=== PATIENT | male | born 1965 | race Caucasian/White ===

== ENCOUNTER → 2017-06-17 | Outpatient (CLI) | payer OTHER | END | disposition home or self-care (01) | LOC: PMGWOUND 13:29 | DX: T25.321A Burn of third degree of right foot, initial encounter (principal); T31.0 Burns involving less than 10% of body surface; S91.301A Unspecified open wound, right foot, initial encounter; F41.9 Anxiety disorder, unspecified; I10 Essential (primary) hypertension; E11.42 Type 2 diabetes mellitus with diabetic polyneuropathy; K21.9 Gastro-esophageal reflux disease without esophagitis; E78.00 Pure hypercholesterolemia, unspecified; X08.8XXA Exposure to other specified smoke, fire and flames, initial encounter; Y93.G3 Activity, cooking and baking; Y92.9 Unspecified place or not applicable; Y99.8 Other external cause status; Z87.891 Personal history of nicotine dependence; Z79.01 Long term (current) use of anticoagulants | CPT/HCPCS: 97597; 97598 ==

== ENCOUNTER → 2017-06-24 | Outpatient (CLI) | payer OTHER | END | disposition home or self-care (01) | LOC: PMGWOUND 11:55 | DX: T25.321D Burn of third degree of right foot, subsequent encounter (principal); T31.0 Burns involving less than 10% of body surface; S91.301D Unspecified open wound, right foot, subsequent encounter; F41.9 Anxiety disorder, unspecified; I10 Essential (primary) hypertension; E11.42 Type 2 diabetes mellitus with diabetic polyneuropathy; K21.9 Gastro-esophageal reflux disease without esophagitis; E78.00 Pure hypercholesterolemia, unspecified; Z87.891 Personal history of nicotine dependence; Z79.01 Long term (current) use of anticoagulants; X08.8XXD Exposure to other specified smoke, fire and flames, subsequent encounter | CPT/HCPCS: 97597; 97598 ==

== ENCOUNTER → 2017-07-01 | Outpatient (CLI) | payer OTHER | END | disposition home or self-care (01) | LOC: PMGWOUND 09:36 | DX: T25.321D Burn of third degree of right foot, subsequent encounter (principal); T31.0 Burns involving less than 10% of body surface; S91.301D Unspecified open wound, right foot, subsequent encounter; F41.9 Anxiety disorder, unspecified; I10 Essential (primary) hypertension; E11.42 Type 2 diabetes mellitus with diabetic polyneuropathy; K21.9 Gastro-esophageal reflux disease without esophagitis; E78.00 Pure hypercholesterolemia, unspecified; Z87.891 Personal history of nicotine dependence; Z79.01 Long term (current) use of anticoagulants; X08.8XXD Exposure to other specified smoke, fire and flames, subsequent encounter | CPT/HCPCS: 97597 ==

== ENCOUNTER → 2017-07-08 | Outpatient (CLI) | payer OTHER | END | disposition home or self-care (01) | LOC: PMGWOUND 09:24 | DX: T25.321D Burn of third degree of right foot, subsequent encounter (principal); T31.0 Burns involving less than 10% of body surface; F41.9 Anxiety disorder, unspecified; I10 Essential (primary) hypertension; E11.42 Type 2 diabetes mellitus with diabetic polyneuropathy; K21.9 Gastro-esophageal reflux disease without esophagitis; E78.00 Pure hypercholesterolemia, unspecified; Z87.891 Personal history of nicotine dependence; Z79.01 Long term (current) use of anticoagulants; X08.8XXD Exposure to other specified smoke, fire and flames, subsequent encounter | CPT/HCPCS: 99214 ==

== ENCOUNTER → 2017-07-13 | Outpatient (CLI) | payer OTHER | END | disposition home or self-care (01) | LOC: PMGWOUND 09:17 | DX: T25.321D Burn of third degree of right foot, subsequent encounter (principal); T31.0 Burns involving less than 10% of body surface; F41.9 Anxiety disorder, unspecified; I10 Essential (primary) hypertension; E11.42 Type 2 diabetes mellitus with diabetic polyneuropathy; K21.9 Gastro-esophageal reflux disease without esophagitis; E78.00 Pure hypercholesterolemia, unspecified; Z87.891 Personal history of nicotine dependence; Z79.01 Long term (current) use of anticoagulants; X08.8XXD Exposure to other specified smoke, fire and flames, subsequent encounter | CPT/HCPCS: 99213 ==

== ENCOUNTER 2017-09-08 05:31 | Emergency (ER) | payer OTHER ==
[2017-09-08 06:34] LABS: ADD MAN DIFF? NO
[2017-09-08] MEDS: IV NORMAL SALINE 1000ML BAG 1,000 ML IV (06:35)
[2017-09-08 06:41] LABS: BASO % 1 % (0-3); EOS # 0.1 x10^3/uL (0.0-0.7); EOS % 2 % (0-3); HEMATOCRIT 42.9 % (39.0-53.0); LYMPH # 2.2 x10^3/uL (1.0-4.8); LYMPH % 34 % (24-48); MEAN CORPUSCULAR HEMOGLOBIN 31 pg (25-35); MEAN CORPUSCULAR HGB CONC 35 g/dL (31-37); MEAN CORPUSCULAR VOLUME 87 fL (79-100); MONO # 0.4 x10^3/uL (0.0-1.1); MONO % 6 % (0-9); NEUT # 3.7 x10^3uL (1.8-7.7); NEUT % 57 % (31-73); PLATELET COUNT 273 x10^3/uL (140-400); RED BLOOD COUNT 4.92 x10^6/uL (4.30-5.70); RED CELL DISTRIBUTION WIDTH 14.3 % (11.5-14.5); WHITE BLOOD COUNT 6.4 x10^3/uL (4.0-11.0)
[2017-09-08 06:52] LABS: ANION GAP 12 (6-14); BLOOD UREA NITROGEN 16 mg/dL (8-26); BUN/CREATININE RATIO 20 (6-20); CALCIUM 8.5 mg/dL (8.5-10.1); CARBON DIOXIDE 27 mmol/L (21-32); CHLORIDE 102 mmol/L (98-107); CREATININE 0.8 mg/dL (0.7-1.3); GFR 101.5; GLUCOSE 128 mg/dL (70-99); POTASSIUM 3.6 mmol/L (3.5-5.1); SODIUM 141 mmol/L (136-145)
[2017-09-08 06:53] LABS: ETHANOL 236 mg/dL (0-10)
[2017-09-08 06:58] LABS: ALBUMIN 3.9 g/dL (3.4-5.0); ALBUMIN/GLOBULIN RATIO 1.1 (1.0-1.7); ALK PHOS 44 U/L (46-116); ALT (SGPT) 160 U/L (16-63); AST (SGOT) 251 U/L (15-37); LIPASE 180 U/L (73-393); TOTAL BILIRUBIN 1.1 mg/dL (0.2-1.0); TOTAL PROTEIN 7.5 g/dL (6.4-8.2)
[2017-09-08 07:04] LABS: TROPONINI < 0.017 ng/mL (0.000-0.055)
[2017-09-08 07:06] LABS: CKMB INDEX 0.3 % (0-4); CKMB MASS 0.9 ng/mL (0.0-3.6); CREATINE KINASE 261 U/L (39-308)
== END 2017-09-08 08:11 | disposition home or self-care (01) ==
LOC: ER 05:31
DX: R53.1 Weakness (principal); R11.2 Nausea with vomiting, unspecified; I10 Essential (primary) hypertension; I11.9 Hypertensive heart disease without heart failure; E11.9 Type 2 diabetes mellitus without complications; F03.90 Unspecified dementia, unspecified severity, without behavioral disturbance, psychotic disturbance, mood disturbance, and anxiety; Z86.73 Personal history of transient ischemic attack (TIA), and cerebral infarction without residual deficits
CPT/HCPCS: 36415; 80053; 82553; 83690; 83735; 84484; 85025; 93005; 96360; 99285-25; G0480; J7030

== ENCOUNTER 2017-12-05 10:46 | Emergency (ER) | payer OTHER ==
[~2017-12-05] VITALS: Ht 188 cm; Wt 86.2 kg
[~2017-12-05 10:46] MED LIST: ALPR0.5T6 PO; CEPH500C PO; LISI-334 PO; LISI10TA2 PO; OMEP40CA5 PO; PARO20TA99 PO; SILV50CR31 TOP; SIMV20TA3 PO; TEMA30CA PO; Warfarin Sodium MC
[2017-12-05] MEDS ORDERED: LIDO:MAALOX 1:1 20 ML SINGLE DOSE. SWSW ONE (12:00)
--- NOTE | 2017-12-05 12:24 | RAD ---
Portable chest, 12/05/2017: HISTORY: Feeling of something stuck in throat The heart size is normal. The lungs are clear. There is no evidence of pleural fluid. No radiopaque foreign body is evident in the chest. There is mild bowing of the azygos esophageal stripe near the GE junction level. A small hiatal hernia could give this appearance. IMPRESSION: No acute cardiopulmonary abnormality is detected. Electronically signed by: Augustin Cruz MD (12/05/2017 12:21 PM) [facility]
[2017-12-05] MEDS ORDERED: IV NORMAL SALINE 1000ML BAG 1,000 ML IV SCH (12:59)
[2017-12-05] MEDS ORDERED: GLUCAGON,HUMAN RECOMBINANT 1 MG/ML VIAL. IV ONE (13:00)
[2017-12-05 13:30] LABS: BASO # 0.1 x10^3/uL (0.0-0.2); BASO % 1 % (0-3); EOS # 0.1 x10^3/uL (0.0-0.7); EOS % 1 % (0-3); HEMATOCRIT 46.9 % (39.0-53.0); HEMOGLOBIN 16.2 g/dL (13.0-17.5); LYMPH # 1.7 x10^3/uL (1.0-4.8); LYMPH % 12 % (24-48); MEAN CORPUSCULAR HEMOGLOBIN 30 pg (25-35); MEAN CORPUSCULAR HGB CONC 35 g/dL (31-37); MEAN CORPUSCULAR VOLUME 88 fL (79-100); MONO # 0.7 x10^3/uL (0.0-1.1); MONO % 5 % (0-9); NEUT # 11.8 x10^3uL (1.8-7.7); NEUT % 83 % (31-73); PLATELET COUNT 340 x10^3/uL (140-400); RED BLOOD COUNT 5.33 x10^6/uL (4.30-5.70); RED CELL DISTRIBUTION WIDTH 13.9 % (11.5-14.5); WHITE BLOOD COUNT 14.3 x10^3/uL (4.0-11.0)
[2017-12-05 13:36] LABS: CALCIUM 9.5 mg/dL (8.5-10.1); CREATININE 1.1 mg/dL (0.7-1.3); GFR 70.3; POTASSIUM 4.2 mmol/L (3.5-5.1)
[2017-12-05] MEDS ORDERED: IV RINGERS,LACTATED 1000ML 1,000 ML IV SCH (13:39)
--- NOTE | 2017-12-05 13:48 | PHYS DOC ---
Past Medical History Past Medical History: Anxiety, GERD, Hypertension Additional Past Medical Histor: irritable bowel, blood clots (peripheral artery disease) Past Surgical History: No Surgical History Alcohol Use: Occasionally Drug Use: None Adult General Chief Complaint Chief Complaint: SWALLOWED FORIEGN BODY HPI HPI Patient is a 52 year old male who presents with complaining of steak stuck in his throat for the last 3 days. States he had history of GERD and usually when he eats steak or chicken he has problems with his doctor in his throat that usually resolves spontaneously but since Wednesday ate steak and piece of meat stuck in his throat that does not go down and he is not able to swallow food or liquids. Patient states sometimes he is able to swallow some liquids and sometimes is not able to swallow and complaining of pain in his throat because he tried to clear his throat frequently because he has foamy mucus coming out of his throat. Patient denies fever and chills, chest pain, generalized weakness. Review of Systems Review of Systems Constitutional: Denies fever or chills [] Eyes: Denies change in visual acuity, redness, or eye pain [] HENT: Denies nasal congestion or sore throat [] Respiratory: Denies cough or shortness of breath [] Cardiovascular: No additional information not addressed in HPI [] GI: Denies abdominal pain, nausea, vomiting, bloody stools or diarrhea [] : Denies dysuria or hematuria [] Musculoskeletal: Denies back pain or joint pain [] Integument: Denies rash or skin lesions [] Neurologic: Denies headache, focal weakness or sensory changes [] Endocrine: Denies polyuria or polydipsia [] All other systems were reviewed and found to be within normal limits, except as documented in this note. Current Medications Current Medications Current Medications Medications (Trade) Dose Ordered Sig/Gabo Start Time Stop Time Status Last Admin Dose Admin Glucagon (Glucagen) 1 mg 1X ONCE 12/05/17 13:00 12/05/17 13:05 DC 12/05/17 13:30 1 MG Multi-Ingredient Mouthwash/Gargle (Gi Cocktail) 20 ml 1X ONCE 12/05/17 12:00 12/05/17 12:01 DC 12/05/17 12:06 20 ML Propofol 20 ml @ As Directed STK-MED ONCE 12/05/17 14:42 12/05/17 14:43 DC Ringer's Solution 1,000 ml @ 50 mls/hr Q20H 12/05/17 13:39 12/06/17 01:38 Sodium Chloride 1,000 ml @ 1,000 mls/hr 1X ONCE 12/05/17 14:45 12/05/17 15:44 Allergies Allergies Allergies Coded Allergies Type Severity Reaction Last Updated Verified No Known Drug Allergies 12/05/17 No Physical Exam Physical Exam Constitutional: Well developed, well nourished, mild distress, non-toxic appearance. [] HENT: Normocephalic, atraumatic, oropharynx moist, no oral exudates, nose normal. [] Eyes: PERRLA, EOMI, conjunctiva normal, no discharge. [] Neck: Normal range of motion, no tenderness, supple, no stridor. [] Cardiovascular:Heart rate regular rhythm, no murmur [] Lungs & Thorax: Bilateral breath sounds clear to auscultation [] Abdomen: Bowel sounds normal, soft, no tenderness, no masses, no pulsatile masses. [] Skin: Warm, dry, no erythema, no rash. [] Back: No tenderness, no CVA tenderness. [] Extremities: No tenderness, no cyanosis, no clubbing, ROM intact, no edema. [] Neurologic: Alert and oriented X 3, normal motor function, normal sensory function, no focal deficits noted. [] Psychologic: Affect anxious, judgement normal, mood normal. [] Current Patient Data Vital Signs Vital Signs Date Time Temp Pulse Resp B/P (MAP) Pulse Ox O2 Delivery O2 Flow Rate FiO2 12/05/17 14:56 99.0 90 20 96 99.0 12/05/17 11:45 130/85 (100) Room Air Lab Values Laboratory Tests Test 12/05/17 13:12 White Blood Count 14.3 x10^3/uL (4.0-11.0) H Red Blood Count 5.33 x10^6/uL (4.30-5.70) Hemoglobin 16.2 g/dL (13.0-17.5) Hematocrit 46.9 % (39.0-53.0) Mean Corpuscular Volume 88 fL (79-100) Mean Corpuscular Hemoglobin 30 pg (25-35) Mean Corpuscular Hemoglobin Concent 35 g/dL (31-37) Red Cell Distribution Width 13.9 % (11.5-14.5) Platelet Count 340 x10^3/uL (140-400) Neutrophils (%) (Auto) 83 % (31-73) H Lymphocytes (%) (Auto) 12 % (24-48) L Monocytes (%) (Auto) 5 % (0-9) Eosinophils (%) (Auto) 1 % (0-3) Basophils (%) (Auto) 1 % (0-3) Neutrophils # (Auto) 11.8 x10^3uL (1.8-7.7) H Lymphocytes # (Auto) 1.7 x10^3/uL (1.0-4.8) Monocytes # (Auto) 0.7 x10^3/uL (0.0-1.1) Eosinophils # (Auto) 0.1 x10^3/uL (0.0-0.7) Basophils # (Auto) 0.1 x10^3/uL (0.0-0.2) Sodium Level 142 mmol/L (136-145) Potassium Level 4.2 mmol/L (3.5-5.1) Chloride Level 103 mmol/L (98-107) Carbon Dioxide Level 24 mmol/L (21-32) Anion Gap 15 (6-14) H Blood Urea Nitrogen 35 mg/dL (8-26) H Creatinine 1.1 mg/dL (0.7-1.3) Estimated GFR (Cockcroft-Gault) 70.3 Glucose Level 111 mg/dL (70-99) H Calcium Level 9.5 mg/dL (8.5-10.1) Laboratory Tests 12/05/17 13:12 Laboratory Tests 12/05/17 13:12 EKG EKG [] Radiology/Procedures Radiology/Procedures [] Course & Med Decision Making Course & Med Decision Making Pertinent Labs and Imaging studies reviewed. (See chart for details) Evaluation of patient in ER showed 52-year-old male patient with complaining of foreign body stuck in throat for the last 3 days and able to swallow some liquids sometimes. Has unremarkable physical exam except for mild anxiety. Patient was not able to swallow GI cocktail and soda and GI on-call Dr. Liu was informed at 1259 and recommended to keep patient NPO for 2 hours and she plans to come to emergency room for endoscopic removal of foreign body. 1500: Patient was started on IV fluids and glucagon without change of his condition. Labs showed marked dehydration. Anesthesiologist presented to ER at 1440 and rated the patient. GI lab staff presented to ER and took patient to GI lab. Patient was discharged from emergency room care. Dragon Disclaimer Dragon Disclaimer This electronic medical record was generated, in whole or in part, using a voice recognition dictation system. Departure Departure Impression: Primary Impression: Esophageal foreign body Additional Impressions: Dehydration Anxiety Disposition: 01 HOME, SELF-CARE (Transferred to GI lab at 1445) Condition: STABLE Referrals: NEHA ADKINS MD (PCP) Patient Instructions: Swallowed Foreign Body, Adult Additional Instructions: Follow-up with your GI specialist orders after endoscopy Problem Qualifiers DONELL GALINDO MD Dec 05, 2017 13:47
[2017-12-05] MEDS ORDERED: PROPOFOL 20 ML IV ONE (14:42)
[2017-12-05] MEDS ORDERED: IV NORMAL SALINE 1000ML BAG 1,000 ML IV ONE (14:45)
[2017-12-05 15:33] VITALS: BP 139/74
--- NOTE | 2017-12-05 22:12 | CONS ---
DATE OF CONSULTATION: 12/05/2017 REQUESTING PHYSICIAN: Dr. Neha Junior. PRIMARY CARE PHYSICIAN: Dr. Neha Junior. REASON FOR CONSULTATION: Esophageal food bolus. HISTORY OF PRESENT ILLNESS: This is a 52-year-old gentleman who reports that he ate steak at 8:30 on 12/03/2017. He has been unable to swallow and manage his saliva since then. He has had a pain. He was seen in the Emergency Room where he received a GI cocktail and . He was unable to tolerate these and vomited up the liquid. He does take omeprazole for GERD and does report occasional dysphagia, which spontaneously resolves within 20 minutes. PAST MEDICAL HISTORY: 1. Hypertension. 2. Anxiety. 3. Hyperlipidemia. 4. GERD. MEDICATIONS: 1. Xanax. 2. Simvastatin. 3. Lisinopril. 4. Omeprazole. 5. Temazepam. SOCIAL HISTORY: He denies tobacco or IV drug abuse. He is a recovering alcoholic. He recently had a relapse 90 days ago. FAMILY MEDICAL HISTORY: No colorectal cancer. REVIEW OF SYSTEMS: A 13-point review of systems was done. It is positive as per HPI and otherwise negative. PHYSICAL EXAMINATION: VITAL SIGNS: His vital signs are stable, he is afebrile. GENERAL: He is a well-developed, well-nourished male, in no apparent distress. HEENT: He has got poor dentition. His oropharynx is clear. CARDIOVASCULAR: S1, S2. LUNGS: Clear. ABDOMEN: Normoactive bowel sounds, soft, nontender, nondistended. EXTREMITIES: No edema. NEUROLOGIC: Awake, alert, oriented x 3. ASSESSMENT AND PLAN: 1. Esophageal food bolus: The risks and benefits of upper endoscopy including bleeding, perforation, non-diagnosis and sedation have been explained and he has agreed to proceed. 2. Colorectal cancer screening: He denies any family history of colon cancer and has not had a colonoscopy. Thank you for allowing me to participate in the care of this patient. CARLEY AMADOR MD DR: DIGNA/todd JOB#: [id number] / [id number] NEHA Enrique MD
== END 2017-12-05 14:30 | disposition home or self-care (01) ==
LOC: ER 10:46
DX: T18.128A Food in esophagus causing other injury, initial encounter (principal); E86.0 Dehydration; F41.9 Anxiety disorder, unspecified; X58.XXXA Exposure to other specified factors, initial encounter; Y93.89 Activity, other specified; Y92.89 Other specified places as the place of occurrence of the external cause; Y99.8 Other external cause status
CPT/HCPCS: 36415; 43247; 71045; 80048; 85025; 96361; 96374; 99285; J1610; J2704; J7030

== ENCOUNTER 2018-02-15 19:54 | Emergency (ER) | payer OTHER ==
[~2018-02-15] VITALS: Ht 188 cm; Wt 86.2 kg
[2018-02-15] MEDS ORDERED: fentaNYL PF VIAL 100 MCG/2 ML VIAL IV ONE ×3 (20:15→21:00)
[2018-02-15] MEDS ORDERED: IV NORMAL SALINE 1000ML BAG 1,000 ML IV ONE (20:45)
[2018-02-15] MEDS ORDERED: ETOMIDATE 20 MG/10 ML VIAL. IV ONE (21:00)
[2018-02-15 21:20] VITALS: BP 141/80
[2018-02-15] MEDS ORDERED: KETAMINE HCL 500 MG/10 ML VIAL. ONE (21:34)
[2018-02-15] MEDS ORDERED: OXYC1TAB15 PO (22:24)
--- NOTE | 2018-02-15 22:24 | PHYS DOC ---
Past Medical History Past Medical History: No Pertinent History Additional Past Medical Histor: irritable bowel, blood clots (peripheral artery disease) Past Surgical History: No Surgical History Alcohol Use: None Drug Use: None Adult General Chief Complaint Chief Complaint: MECHANICAL FALL HPI HPI Patient is a 52 year old [f__sex] who presents with [] Review of Systems Review of Systems Constitutional: Denies fever or chills [] Eyes: Denies change in visual acuity, redness, or eye pain [] HENT: Denies nasal congestion or sore throat [] Respiratory: Denies cough or shortness of breath [] Cardiovascular: No additional information not addressed in HPI [] GI: Denies abdominal pain, nausea, vomiting, bloody stools or diarrhea [] : Denies dysuria or hematuria [] Musculoskeletal: Denies back pain or joint pain [] Integument: Denies rash or skin lesions [] Neurologic: Denies headache, focal weakness or sensory changes [] Endocrine: Denies polyuria or polydipsia [] All other systems were reviewed and found to be within normal limits, except as documented in this note. Current Medications Current Medications Current Medications Medications (Trade) Dose Ordered Sig/Gabo Start Time Stop Time Status Last Admin Dose Admin Etomidate (Amidate) 10 mg 1X ONCE 02/15/18 21:00 02/15/18 21:01 DC 02/15/18 21:52 10 MG Fentanyl Citrate (Fentanyl 2ml Vial) 100 mcg 1X ONCE 02/15/18 21:00 02/15/18 21:01 DC 02/15/18 21:53 100 MCG Ketamine HCl 100 mg 1X ONCE 02/15/18 22:30 02/15/18 22:31 Oxycodone/ Acetaminophen (Percocet 5/325) 1 tab 1X ONCE 02/15/18 23:00 02/15/18 23:01 Sodium Chloride 1,000 ml @ 1,000 mls/hr 1X ONCE 02/15/18 20:45 02/15/18 21:44 DC 02/15/18 20:44 1,000 MLS/HR Allergies Allergies Allergies Coded Allergies Type Severity Reaction Last Updated Verified No Known Drug Allergies 12/05/17 No Physical Exam Physical Exam Constitutional: Well developed, well nourished, no acute distress, non-toxic appearance. [] HENT: Normocephalic, atraumatic, bilateral external ears normal, oropharynx moist, no oral exudates, nose normal. [] Eyes: PERRLA, EOMI, conjunctiva normal, no discharge. [] Neck: Normal range of motion, no tenderness, supple, no stridor. [] Cardiovascular:Heart rate regular rhythm, no murmur [] Lungs & Thorax: Bilateral breath sounds clear to auscultation [] Abdomen: Bowel sounds normal, soft, no tenderness, no masses, no pulsatile masses. [] Skin: Warm, dry, no erythema, no rash. [] Back: No tenderness, no CVA tenderness. [] Extremities: No tenderness, no cyanosis, no clubbing, ROM intact, no edema. [] Neurologic: Alert and oriented X 3, normal motor function, normal sensory function, no focal deficits noted. [] Psychologic: Affect normal, judgement normal, mood normal. [] Current Patient Data Vital Signs Vital Signs Date Time Temp Pulse Resp B/P (MAP) Pulse Ox O2 Delivery O2 Flow Rate FiO2 02/15/18 21:53 16 96 Room Air 02/15/18 20:30 98.6 74 149/84 (105) 98.6 EKG EKG [] Radiology/Procedures Radiology/Procedures [] Course & Med Decision Making Course & Med Decision Making Pertinent Labs and Imaging studies reviewed. (See chart for details) [] Dragon Disclaimer Dragon Disclaimer This electronic medical record was generated, in whole or in part, using a voice recognition dictation system. Departure Departure Impression: Primary Impression: Dislocation of elbow, right, closed Disposition: 01 HOME, SELF-CARE Condition: STABLE Referrals: NEHA ADKINS MD (PCP) SHERYL CONTI II, MD Patient Instructions: Elbow Dislocation, Sedation or General Anesthesia, Adult , Care After, Sedation, Moderate, Adult Scripts Oxycodone/Apap 5-325 (PERCOCET 5-325 MG TABLET) 1 Each Tablet 0.5 TAB PO PRN Q6HRS PRN for PAIN, #14 TAB 0 Refills Prov: ORQUIDEA LACKEY 02/15/18 MODERATE SEDATION ASSESSMENT RISKS/ALTERNATIVES Risks/Alternatives Risks and alternatives of this type of sedation and procedure discussed with: H & P ON CHART H & P H & P on chart and reviewed for co-morbid conditions and appropriate labs. MEDS/ALLERGIES REVIEWED Meds/Allergies Reviewed Medications and Allergies including time and route of recently administered narcotics and sedatives. AIRWAY ASSESSMENT Airway Assessment Airway patency, oral function limitations, presence of caps, crowns, dentures, partials, and ability to extend neck assessed. Problem Qualifiers Primary Impression: Dislocation of elbow, right, closed Encounter type: initial encounter Qualified Codes: S53.104A - Unspecified dislocation of right ulnohumeral joint, initial encounter ORQUIDEA LACKEY DO Feb 15, 2018 22:24
[2018-02-15 22:29] VITALS: BP 152/78
[2018-02-15] MEDS ORDERED: KETAMINE HCL 500 MG/10 ML VIAL. IV ONE (22:30)
[2018-02-15] MEDS ORDERED: oxyCODONE/APAP 5/325 1 TAB TABLET PO ONE (23:00)
--- NOTE | 2018-02-16 00:39 | RAD ---
AP and lateral right elbow radiographs 02/15/2018 CLINICAL HISTORY: Fall with injury to the right elbow. The radial head and proximal ulna are dislocated posteriorly. There appears to be a fracture of the coronoid process along with the right radial head. There is a large right elbow joint effusion. IMPRESSION: Posterior dislocation of the right elbow with suspected fractures involving the coronoid process of the right ulna and the right radial head. Electronically signed by: Oracio Yun MD (02/16/2018 12:36 AM) [facility] [id number]
--- NOTE | 2018-02-16 01:58 | RAD ---
Two-view right elbow radiographs 02/15/2018 CLINICAL HISTORY: Post reduction of a dislocation of the right elbow. AP and lateral digital radiographs of the right elbow were obtained. Comparison study is dated earlier same day. An external cast has been placed around the right elbow. The posterior dislocation of the right elbow has been reduced. A nondisplaced fracture of the right radial head is again seen. IMPRESSION: Postreduction of the right elbow dislocation. Electronically signed by: Oracio Yun MD (02/16/2018 1:54 AM) [id number]
== END 2018-02-15 23:15 | disposition home or self-care (01) ==
LOC: ER 19:54
DX: S53.024A Posterior dislocation of right radial head, initial encounter (principal); S53.124A Posterior dislocation of right ulnohumeral joint, initial encounter; K58.9 Irritable bowel syndrome, unspecified; I73.9 Peripheral vascular disease, unspecified; W18.39XA Other fall on same level, initial encounter; Y93.89 Activity, other specified; Y92.89 Other specified places as the place of occurrence of the external cause; Y99.8 Other external cause status
CPT/HCPCS: 24600; 73070; 99285; J3010; J3490; J7030; 99152

== ENCOUNTER → 2018-04-05 | Outpatient (CLI) | payer OTHER ==
[~2018-04-05] MED LIST changes: +OXYC1TAB15 PO
--- NOTE | 2018-04-05 14:51 | RAD ---
EXAM: CT RIGHT ELBOW DATE: 04/05/2018 9:13 AM COMPARISON: No prior INDICATION: History of right elbow dislocation post fall. TECHNIQUE: CT of the right elbow was performed without IV contrast. Axial coronal and sagittal reformatted images were generated. In addition 3-D reformat images were also generated. FINDINGS: Of note, given positioning constraints, evaluation is limited given associated quantum mottle. There is a nondisplaced fracture of the radial head without significant cortical offset/irregularity or gap at the articular surface. Mild contour abnormality of the coronoid process suggesting nondisplaced coronoid process fracture. No elbow joint effusion. Normal muscle signal and bulk. 2-D AND 3-D reformat images redemonstrate normal alignment of the elbow joint. IMPRESSION: 1. Nondisplaced fractures of the radial head and coronoid process 2. Normal alignment of the radiohumeral and ulnohumeral joints. Electronically signed by: Maury Barron MD (04/05/2018 2:46 PM) [id number]
== END | disposition home or self-care (01) ==
LOC: CT 09:05
PROVIDERS: ATTEND Orthopaedic Surgery Sports Medicine
DX: S52.124A Nondisplaced fracture of head of right radius, initial encounter for closed fracture (principal); S52.044A Nondisplaced fracture of coronoid process of right ulna, initial encounter for closed fracture; S53.104D Unspecified dislocation of right ulnohumeral joint, subsequent encounter; W19.XXXA Unspecified fall, initial encounter; W19.XXXD Unspecified fall, subsequent encounter; Y93.89 Activity, other specified; Y92.89 Other specified places as the place of occurrence of the external cause; Y99.8 Other external cause status
CPT/HCPCS: 73200

== ENCOUNTER 2020-06-24 15:45 | Observation (INO) | payer OTHER ==
[~2020-06-24] VITALS: Ht 188 cm; Wt 81.1 kg
[~2020-06-24 15:45] MED LIST changes: -LISI-334 PO; +LISI10TA16 PO; -LISI10TA2 PO; +LISI20TA18 PO; +OMEP40CA45 PO; -OMEP40CA5 PO; +SIMV20TA18 PO; -SIMV20TA3 PO
--- NOTE | 2020-06-24 17:19 | RAD ---
EXAMINATION: US DPLX VENOUS EXTREMITY LOWER RT, 06/24/2020 4:48 PM CLINICAL INDICATION: Right calf pain and swelling, history of blood clot and COMPARISON: None PROCEDURE: Multiple grayscale, color Doppler and spectral Doppler sonographic images of the right low er extremity were obtained. FINDINGS: There is occlusive thrombus in the right distal superficial femoral vein, popliteal vein, p osterior tibial veins, and peroneal veins. The right common femoral, greater saphenous, and proximal to mid superficial femoral veinsare patent. IMPRESSION: Positive exam for occlusive acute deep venous thrombosis in the right lower extremity fro m the distal superficial femoral vein through the calf veins. FOR INTERNAL CODING PURPOSES Critical result: Findings discussed with the ordering physician on 06/24/2020 5:15 PM. RESULT CODE: (C) Electronically signed by: Geno Qiu MD (06/24/2020 5:16 PM) [id number]
[2020-06-24] MEDS ORDERED: IOHEXOL 350 MG/ML 100 ML VIAL. IV ONE (17:30)
[2020-06-24] MEDS ORDERED: ALPRAZolam 0.5 MG TABLET PO ONE (17:45)
[2020-06-24 18:07] LABS: BASO # 0.1 x10^3/uL (0.0-0.2); BASO % 1 % (0-3); EOS # 0.1 x10^3/uL (0.0-0.7); EOS % 1 % (0-3); HEMATOCRIT 43.6 % (39.0-53.0); HEMOGLOBIN 15.1 g/dL (13.0-17.5); LYMPH # 1.5 x10^3/uL (1.0-4.8); LYMPH % 11 % (24-48); MEAN CORPUSCULAR HEMOGLOBIN 30 pg (25-35); MEAN CORPUSCULAR HGB CONC 35 g/dL (31-37); MEAN CORPUSCULAR VOLUME 87 fL (79-100); MONO # 1.1 x10^3/uL (0.0-1.1); MONO % 8 % (0-9); NEUT # 11.1 x10^3/uL (1.8-7.7); NEUT % 80 % (31-73); PLATELET COUNT 100 x10^3/uL (140-400); RED BLOOD COUNT 5.04 x10^6/uL (4.30-5.70); RED CELL DISTRIBUTION WIDTH 13.8 % (11.5-14.5); WHITE BLOOD COUNT 13.9 x10^3/uL (4.0-11.0)
[2020-06-24 18:17] LABS: PROTHROMBIN TIME PATIENT 14.6 SEC (11.7-14.0)
--- NOTE | 2020-06-24 18:18 | ED.ADGEN ---
Past Medical History Past Medical History: Anxiety, GERD, High Cholesterol, Hypertension, Other Additional Past Medical Histor: irritable bowel, blood clots (peripheral artery disease), INSOMNIA Past Surgical History: Angioplasty, Other Smoking Status: Former Smoker Alcohol Use: None Drug Use: None General Adult EDM: Chief Complaint: LOWER EXT PAIN HPI: HPI: Patient is a 54 year old male who presents emergency department with complaints of right lower extremity swelling and pain for the last 2 days. Patient reports that he is have a history of having a blood clot in his toe once and he almost lost his toe to the blood clot so he feels very anxious about being here today. Patient denies any use of anticoagulants. He is any erythema, warmth, or injury to his right leg. Numbness, tingling, or decreased sensation to the affected extremity. He denies any chest pain, shortness of breath, fever, cough, nausea, vomiting, diarrhea, abdominal pain, or rash. Patient denies any known exposure to COVID-19. He currently rates pain 3 out of 10 on pain scale he denies any alleviating or exacerbating factors. Review of Systems: Review of Systems: Complete ROS is negative unless otherwise noted in HPI. Current Medications: Current Medications Medications (Trade) Dose Ordered Sig/[facility] Start Time Stop Time Status Last Admin Dose Admin Alprazolam (Xanax) 1 mg 1X ONCE 06/24/20 17:45 06/24/20 17:46 DC 06/24/20 18:09 1 MG Enoxaparin Sodium (Lovenox 100mg Syringe) 90 mg Q12HR 06/24/20 18:00 06/24/20 20:30 DC 06/24/20 18:09 90 MG Enoxaparin Sodium (Lovenox Per Pharmacy Treatment Dosing) 1 each PRN DAILY PRN 06/24/20 17:45 06/24/20 20:29 DC Iohexol (Omnipaque 350 Mg/ml) 100 ml 1X ONCE 06/24/20 17:30 06/24/20 17:31 DC 06/24/20 18:42 100 ML Allergies: Allergies: Allergies Coded Allergies Type Severity Reaction Last Updated Verified No Known Drug Allergies 12/05/17 No Physical Exam: PE: See Above Constitutional: Well developed, well nourished, no acute distress, non-toxic appearance, anxious. [] HENT: Normocephalic, atraumatic, bilateral external ears normal, nose normal. [] Eyes: PERRLA, EOMI, conjunctiva normal, no discharge. [] Neck: Normal range of motion, no stridor. [] Cardiovascular:Heart rate regular rhythm Lungs & Thorax: Respirations even and unlabored, no retractions, no respiratory distress Abdomen: soft, no tenderness Skin: Warm, dry, no erythema, no rash. [] Extremities: RLE: 2+ pedal pulse 2+ posterior tibial pulse, no bony tenderness, tenderness to palpation of the calf, cap refill less than 2 seconds, no cyan osis, ROM intact, 1+ edema. [] Neurologic: Alert and oriented X 3, no focal deficits noted. [] Psychologic: Affect anxious, judgement normal, mood normal. [] Current Patient Data: Labs: Laboratory Tests Test 06/24/20 17:58 White Blood Count 13.9 x10^3/uL (4.0-11.0) H Red Blood Count 5.04 x10^6/uL (4.30-5.70) Hemoglobin 15.1 g/dL (13.0-17.5) Hematocrit 43.6 % (39.0-53.0) Mean Corpuscular Volume 87 fL (79-100) Mean Corpuscular Hemoglobin 30 pg (25-35) Mean Corpuscular Hemoglobin Concent 35 g/dL (31-37) Red Cell Distribution Width 13.8 % (11.5-14.5) Platelet Count 100 x10^3/uL (140-400) L Neutrophils (%) (Auto) 80 % (31-73) H Lymphocytes (%) (Auto) 11 % (24-48) L Monocytes (%) (Auto) 8 % (0-9) Eosinophils (%) (Auto) 1 % (0-3) Basophils (%) (Auto) 1 % (0-3) Neutrophils # (Auto) 11.1 x10^3/uL (1.8-7.7) H Lymphocytes # (Auto) 1.5 x10^3/uL (1.0-4.8) Monocytes # (Auto) 1.1 x10^3/uL (0.0-1.1) Eosinophils # (Auto) 0.1 x10^3/uL (0.0-0.7) Basophils # (Auto) 0.1 x10^3/uL (0.0-0.2) Prothrombin Time 14.6 SEC (11.7-14.0) H Prothrombin Time INR 1.2 (0.8-1.1) H Sodium Level 134 mmol/L (136-145) L Potassium Level 3.2 mmol/L (3.5-5.1) L Chloride Level 93 mmol/L (98-107) L Carbon Dioxide Level 31 mmol/L (21-32) Anion Gap 10 (6-14) Blood Urea Nitrogen 10 mg/dL (8-26) Creatinine 0.8 mg/dL (0.7-1.3) Estimated GFR (Cockcroft-Gault) 100.7 BUN/Creatinine Ratio 13 (6-20) Glucose Level 127 mg/dL (70-99) H Calcium Level 8.5 mg/dL (8.5-10.1) Total Bilirubin 1.9 mg/dL (0.2-1.0) H Aspartate Amino Transferase (AST) 69 U/L (15-37) H Alanine Aminotransferase (ALT) 42 U/L (16-63) Alkaline Phosphatase 55 U/L (46-116) Total Protein 6.7 g/dL (6.4-8.2) Albumin 3.5 g/dL (3.4-5.0) Albumin/Globulin Ratio 1.1 (1.0-1.7) Laboratory Tests 06/24/20 17:58 Laboratory Tests 06/24/20 17:58 Vital Signs: Vital Signs Date Time Temp Pulse Resp B/P (MAP) Pulse Ox O2 Delivery O2 Flow Rate FiO2 06/24/20 18:00 100 142/97 (112) 97 Room Air 06/24/20 15:47 12 EKG: EKG: [] Heart Score: C/O Chest Pain: No Risk Scores: Score 0 - 3: 2.5% MACE over next 6 weeks - Discharge Home Score 4 - 6: 20.3% MACE over next 6 weeks - Admit for Clinical Observation Score 7 - 10: 72.7% MACE over next 6 weeks - Early Invasive Strategies Radiology/Procedures: Radiology/Procedures: PROCEDURE: VENOUS LOWER EXTREMITY RIGHT EXAMINATION: US DPLX VENOUS EXTREMITY LOWER RT, 06/24/2020 4:48 PM CLINICAL INDICATION: Right calf pain and swelling, history of blood clot and COMPARISON: None PROCEDURE: Multiple grayscale, color Doppler and spectral Doppler sonographic images of the right lower extremity were obtained. FINDINGS: There is occlusive thrombus in the right distal superficial femoral vein, popliteal vein, posterior tibial veins, and peroneal veins. The right common femoral, greater saphenous, and proximal to mid superficial femoral veinsare patent. IMPRESSION: Positive exam for occlusive acute deep venous thrombosis in the right lower extremity from the distal superficial femoral vein through the calf veins. FOR INTERNAL CODING PURPOSES Critical result: Findings discussed with the ordering physician on 06/24/2020 5:15 PM. RESULT CODE: (C) PROCEDURE: CT ANGIOGRAPHY CHEST Exam: CT of chest with contrast INDICATION: DVT in the right lower extremity TECHNIQUE: Sequential axial images through the chest obtained following the administration 100 mL of Omni 350 IV contrast. Sagittal and coronal reformatted images were reconstructed from the axial data and reviewed. 3-D reformatted images were reconstructed from the axial data and reviewed. Comparisons: Ultrasound same day FINDINGS: Visualized portions of the thyroid are unremarkable. No enlarged mediastinal lymph nodes. Heart size is normal. No pericardial effusion. Thoracic aorta has a normal course and caliber. Pulmonary artery is not enlarged. There is a pulmonary embolus noted within a subsegmental branch of the right lower lobe. Airways are patent. No consolidation or pneumothorax. No suspicious lung nodules. No pleural effusion or thickening. Diffuse hepatic steatosis. No suspicious osseous lesions or acute fractures. IMPRESSION: 1. Subsegmental pulmonary embolus within the right lower lobe. No evidence for right heart strain. 2. Diffuse hepatic steatosis. Exposure: One or more of the following in the visualized dose reduction techniques were utilized for this examination: 1. Automated exposure control 2. Adjustment of the MA and/or KV according to patient size 3. Use of iterative of reconstructive technique Electronically signed by: Anastasia Ortiz MD (06/24/2020 7:07 PM) [facility] [] Course & Med Decision Making: Course & Med Decision Making Pertinent Labs and Imaging studies reviewed. (See chart for details) [id number] with Dr. Adkins who is the admitting physician, and care was assumed following discussion of patient. Will admit patient as observation status for DVT of the right lower extremity. I advised him of pending CT chest and labs that were ordered. Patient's vital signs stable. Patient remains afebrile, appears nontoxic, respirations even and unlabored. Patient will be admitted to the medical surgical floor. Patient's case and plan of care also discussed with Dr. Hughes [] Precious Disclaimer: Precious Disclaimer: This electronic medical record was generated, in whole or in part, using a voice recognition dictation system. Departure Departure Referrals: NEHA ADKINS MD (PCP) KENA PALENCIA APRN Jun 24, 2020 18:18
[2020-06-24 18:26] LABS: CALCIUM 8.5 mg/dL (8.5-10.1); CREATININE 0.8 mg/dL (0.7-1.3); GFR 100.7; POTASSIUM 3.2 mmol/L (3.5-5.1)
[2020-06-24 18:32] LABS: ALBUMIN 3.5 g/dL (3.4-5.0); ALBUMIN/GLOBULIN RATIO 1.1 (1.0-1.7); TOTAL BILIRUBIN 1.9 mg/dL (0.2-1.0); TOTAL PROTEIN 6.7 g/dL (6.4-8.2)
--- NOTE | 2020-06-24 19:10 | RAD ---
Exam: CT of chest with contrast INDICATION: DVT in the right lower extremity TECHNIQUE: Sequential axial images through the chest obtained following the administration 100 mL of Omni 350 IV contrast. Sagittal and coronal reformatted images were reconstructed from the axial data and reviewed. 3-D reformatted images were reconstructed from the axial data and reviewed. Comparisons: Ultrasound same day FINDINGS: Visualized portions of the thyroid are unremarkable. No enlarged mediastinal lymph nodes. Heart size is normal. No pericardial effusion. Thoracic aorta has a normal course and caliber. Pulmon karthik artery is not enlarged. There is a pulmonary embolus noted within a subsegmental branch of the ri ght lower lobe. Airways are patent. No consolidation or pneumothorax. No suspicious lung nodules. No pleural effusion or thickening. Diffuse hepatic steatosis. No suspicious osseous lesions or acute fractures. IMPRESSION: 1. Subsegmental pulmonary embolus within the right lower lobe. No evidence for right heart strain. 2. Diffuse hepatic steatosis. Exposure: One or more of the following in the visualized dose reduction techniques were utilized for this examination: 1. Automated exposure control 2. Adjustment of the MA and/or KV according to patient size 3. Use of iterative of reconstructive technique Electronically signed by: Anastasia Ortiz MD (06/24/2020 7:07 PM) [facility]
[2020-06-24 20:00] VITALS: BP 151/97
[2020-06-24] MEDS ORDERED: AMLO-186 PO (20:50)
[2020-06-24] MEDS ORDERED: LOSA100T14 PO (20:50)
[2020-06-24] MEDS ORDERED: ALPR0.5T6 PO (20:50)
[2020-06-24] MEDS ORDERED: OMEP40CA45 PO (20:50)
[2020-06-24] MEDS ORDERED: SIMV20TA18 PO (20:50)
[2020-06-24] MEDS ORDERED: FLUT16SP NS (20:50)
[2020-06-24] MEDS: ALPRAZolam 0.5 MG TABLET PO SCH (21:00)
--- NOTE | 2020-06-24 21:00 | NUR ---
ADMIT NOTE The patient, TRACEY RIVERA, 54 y/o, M admitted by NEHA ADKINS MD, was given written information regarding hospital policies, unit procedures and contact persons. Patient orientated to room, plan of care discussed and admit packet reviewed. Allergies, home medications, and preferred pharmacy verified with patient. MD notified of patient's admission to floor and orders received. Patient remains in bed, bed in lowest/locked position, and call light within reach; no other needs voiced by patient at this time.
[2020-06-24] MEDS: TEMAZEPAM 15 MG CAPSULE PO PRN (21:34)
[2020-06-24] MEDS: HYDROcodone/APAP 5/325MG 1 TAB TABLET PO PRN (21:35)
--- NOTE | 2020-06-24 21:35 | NUR ---
Scheduled Xanax non-administered d/t patient receiving dose in ED.
[2020-06-24 23:00] VITALS: BP 145/80
[2020-06-25 03:00] VITALS: BP 143/81
[2020-06-25 07:00] VITALS: BP 158/93
--- NOTE | 2020-06-25 08:46 | PDOC ---
Provider Note Date of Service: DATE: 06/25/20 TIME: 08:43 Provider Note [id number] Justifications for Admission Other Justification NEHA ADKINS MD Jun 25, 2020 08:46
[2020-06-25] MEDS ORDERED: traMADol 50 MG TABLET PO PRN (09:00)
[2020-06-25] MEDS: FLUTICASONE 50MCG/NASAL SPRAY 16GM BOTTLE. NS SCH (09:00)
[2020-06-25] MEDS: POTASSIUM CHLORIDE 10 MEQ TABLET.ER. PO SCH ×2 (09:12→17:10)
[2020-06-25] MEDS: ATORVASTATIN CALCIUM 10 MG TABLET. PO SCH (09:12)
[2020-06-25] MEDS: PANTOPRAZOLE 40 MG TABLET.DR. PO SCH (09:12)
[2020-06-25] MEDS: amLODIPine BESYLATE 5 MG TABLET PO SCH (09:12)
[2020-06-25] MEDS: ALPRAZolam 0.5 MG TABLET PO SCH ×2 (09:13→20:09)
[2020-06-25] MEDS: RIVAROXABAN 15 MG TABLET. PO SCH ×2 (09:13→17:10)
[2020-06-25] MEDS: LOSARTAN POTASSIUM 50 MG TABLET. PO SCH (09:15)
[2020-06-25] MEDS: HYDROcodone/APAP 5/325MG 1 TAB TABLET PO PRN ×3 (09:18→20:14)
--- NOTE | 2020-06-25 09:20 | HP ---
ADMIT DATE: 06/24/2020 CHIEF COMPLAINT: Swollen right leg. HISTORY OF PRESENT ILLNESS: A 54-year-old white male with hypertension and chronic anxiety and some history of alcohol abuse, came in with 2-3 days of right leg pain and then noted swelling in his foot and lower leg and was suspicious he had a blood clot present. He denies chest pain, hemoptysis, cough, fever, chills, injury or recent immobilization. DVT study showed evidence of diffuse occlusive thrombophlebitis of the right lower extremity from the thigh down to the ankle and also a small right-sided pulmonary embolus present on CT scan. He was started on Lovenox and is taking Xarelto this morning and feeling somewhat better in the right leg. He has never had any previous DVT problems. PAST MEDICAL HISTORY: Medications: Noted per the chart. He has a history of alcohol abuse and anxiety, He takes Xanax and temazepam. Allergies: No allergies are known. SOCIAL HISTORY: Unemployed, nonsmoker. Denies much alcohol use. Physically active. FAMILY HISTORY: Unremarkable. REVIEW OF SYSTEMS: Unremarkable. OBJECTIVE: ENT: All within normal limits. NECK: No nodes, masses, or bruits. LUNGS: Clear without tachypnea or rubs. CARDIOVASCULAR: Regular rate. Heart rate about 100. No murmur. ABDOMEN: Soft, benign and nontender. EXTREMITIES: He has 1+ pretibial edema and the right dorsal foot is mildly swollen. Calf and leg are not really tender. Rest of the exam is normal with good pedal pulses bilaterally. NEUROLOGIC: Anxious, nonfocal. No focal findings are noted. ASSESSMENT: Right leg deep vein thrombosis with secondary right lower lobe pulmonary embolus, history of hypertension and chronic anxiety disorder and some history of alcohol abuse as well. PLAN: Continue Xarelto as ordered and we will only switch to warfarin and Lovenox if his insurance makes his Xarelto unaffordable as an outpatient. He will check his pharmacy later today regarding that. NEHA ADKINS MD DR: SEDRICK/todd JOB#: [id number] / [id number]
[2020-06-25 11:00] VITALS: BP 146/90
--- NOTE | 2020-06-25 11:28 | NUR ---
This SW asked to compete advanced directive paperwork. SW met with patient. Pt a/o and able to make needs known. Pt requesting to list his mother Aliza Mccarty ([phone]) as his primary agent for the power of civil attorney for HC. Pt listed his brother Jonas Mccarty ([phone]) as his first alternate agent. POA for HC form notarized and provided to pt with copies. Copy placed on pt's chart. No further needs from this SW.
--- NOTE | 2020-06-25 11:49 | NUR ---
ROSARIO following. Discussed with RN, pt from home alone, room air, cardiac diet. Pt needing to find out if he can afford the Xarelto prescription, has spoken to his insurance. ROSARIO provided Xarelto assistance program information to pt. Wendy PONCE met with pt to complete DPOA paperwork. Pt denied any further SW needs. RN notified. ROSARIO will continue to follow.
[2020-06-25 15:00] VITALS: BP 124/65
[2020-06-25 19:00] VITALS: BP 136/94
[2020-06-25] MEDS: TEMAZEPAM 15 MG CAPSULE PO PRN (21:45)
[2020-06-25 23:00] VITALS: BP 122/86
[2020-06-26 03:00] VITALS: BP 129/86
[2020-06-26] MEDS: PANTOPRAZOLE 40 MG TABLET.DR. PO SCH (06:22)
[2020-06-26] MEDS: HYDROcodone/APAP 5/325MG 1 TAB TABLET PO PRN (06:23)
[2020-06-26 07:00] VITALS: BP 106/72
[2020-06-26] MEDS: ALPRAZolam 0.5 MG TABLET PO SCH (08:22)
[2020-06-26] MEDS: ATORVASTATIN CALCIUM 10 MG TABLET. PO SCH (08:22)
[2020-06-26] MEDS: LOSARTAN POTASSIUM 50 MG TABLET. PO SCH (08:23)
[2020-06-26] MEDS: RIVAROXABAN 15 MG TABLET. PO SCH (08:23)
[2020-06-26] MEDS: POTASSIUM CHLORIDE 10 MEQ TABLET.ER. PO SCH (08:23)
[2020-06-26] MEDS: amLODIPine BESYLATE 5 MG TABLET PO SCH (08:23)
--- NOTE | 2020-06-26 08:41 | PDOC ---
Provider Note Date of Service: DATE: 06/26/20 TIME: 08:39 Provider Note [id number] Justifications for Admission Other Justification NEHA ADKINS MD Jun 26, 2020 08:41
[2020-06-26] MEDS: FLUTICASONE 50MCG/NASAL SPRAY 16GM BOTTLE. NS SCH (09:00)
--- NOTE | 2020-06-26 09:57 | NUR ---
SW following. Discussed with RN, pt from home alone, room air, cardiac diet. Discharge order for home with self care. Pt provided with Xarelto program and DPOA paperwork completed. No further SW needs.
[2020-06-26 10:51] VITALS: BP 132/88
--- NOTE | 2020-06-26 12:07 | NUR ---
Pt discharged home with self care. Discharge instructions and prescriptions discussed. Pt verbalized understanding. IV removed. Pt assisted to wheelchair and was secured in car with mom.
--- NOTE | 2020-06-26 12:30 | DS ---
DATE OF DISCHARGE: 06/26/2020 HOSPITAL SUMMARY: A 54-year-old white male came in with diffuse pain and swelling in his right leg and DVT in the right lower extremity, found by Doppler study. He also had a small DVT in the right lower lobe per CT scan, but rest of the laboratory studies were unremarkable. He was treated with a single dose of Lovenox and then oral Xarelto and is feeling better and able to be followed as an outpatient as he has learned that his insurance will cover Xarelto. FINAL DIAGNOSES: 1. Deep vein thrombosis, acute right lower extremity. 2. Pulmonary embolus, right lower lobe secondary to DVT. OPERATIONS, PROCEDURES, COMPLICATIONS, CONSULTATIONS: None. DISPOSITION: Xarelto 15 mg twice a day for 20 days and then 20 mg daily after that for 6 months, which will be followed by hypercoagulability profile. He has been sedentary at home for the last several weeks and likely this is the source of the DVT. Home meds remain the same. Activity and diet as tolerated. PROGNOSIS: Good. NEHA ADKINS MD DR: SEDRICK/todd JOB#: [id number] / [id number]
== END 2020-06-26 12:14 | disposition home or self-care (01) ==
LOC: ER 15:45 → 4 NORTH 18:10
PROVIDERS: ADMIT Family Medicine; ATTEND Family Medicine
DX: I82.411 Acute embolism and thrombosis of right femoral vein (principal); I26.93 Single subsegmental thrombotic pulmonary embolism without acute cor pulmonale; I10 Essential (primary) hypertension; F41.9 Anxiety disorder, unspecified; I73.9 Peripheral vascular disease, unspecified; E78.00 Pure hypercholesterolemia, unspecified; K76.0 Fatty (change of) liver, not elsewhere classified; F10.129 Alcohol abuse with intoxication, unspecified; Z87.891 Personal history of nicotine dependence
CPT/HCPCS: 36415; 71275; 80053; 85025; 85610; 93971; 96372; 99285; G0378; J1650; Q9967; G0379